=== PATIENT | male | born 1955 | race Two or more races ===

== ENCOUNTER 2025-07-10 07:34 | Inpatient (IN) | payer MEDICAID ==
[2025-07-10] VITALS (32 sets, daily range): BP systolic 73–128; BP diastolic 49–95; TEMP 96.8–97; O2SAT 92–100
[~2025-07-10] VITALS: Ht 170.2 cm; Wt 104.8 kg
[2025-07-10] MEDS: ETOMIDATE 2 MG/ML VIAL IV ONE (07:44)
[2025-07-10] MEDS: ROCURONIUM BROMIDE 100 MG/10 ML VIAL IV ONE (07:44)
[2025-07-10] MEDS: IV NS 0.9% 500 ML BAG IV ONE (07:45)
[2025-07-10] MEDS ORDERED: PROPOFOL 100 ML ONE (07:49)
[2025-07-10] MEDS ORDERED: IOHEXOL-350 100 ML VIAL IV ONE (07:53)
[2025-07-10] MEDS ORDERED: IV NS 0.9% 250 ML IV ONE (07:53)
[2025-07-10 08:23] LABS: PLATELET COUNT (AUTO) 156 K/uL (150-450); RED CELL DISTRIBUTION WIDTH 19.5 % (11.5-15.0); WHITE BLOOD COUNT (AUTO) 9.9 K/uL (4.3-11.0)
[2025-07-10 08:28] LABS: RED BLOOD CELL COUNT(AUTO) 1.68 MIL/uL (4.5-6.0)
[2025-07-10 08:33] LABS: CALCIUM, SERUM 8.0 mg/dL (8.5-10.1); CREATININE 1.4 mg/dL (0.6-1.3); SODIUM SERUM 137 mmol/L (136-145); UREA NITROGEN, BLOOD 37 mg/dL (7-18)
[2025-07-10] MEDS: PROPOFOL 100 ML IV ONE (08:35)
[2025-07-10 08:37] LABS: INR 1.46 (0.91-1.10)
[2025-07-10 08:38] LABS: ASPARTATE AMINOTRANSFERASE 75 U/L (15-37); LACTIC ACID 6.6 mmol/L (0.4-2.0); TOTAL PROTEIN, SERUM 6.0 g/dL (6.4-8.2)
[2025-07-10] MEDS: VANCOMYCIN 1 GM in IV D5W 250 ML IV ONE (08:38)
[2025-07-10 08:41] LABS: ALCOHOL, BLOOD < 3 mg/dL (0-10)
[2025-07-10 08:50] LABS: ABG BASE EXCESS -5.7 mmol/L (-2.0-3.0); ABG OXYGEN SATURATION 99.6 % (94.0-98.0); ABG PCO2 34.8 mmHg (35.0-48.0); ABG PH 7.360 (7.350-7.450); ABG PO2 335.8 mmHg (83.0-108.0); ABG TOTAL HEMOGLOBIN 6.3 G/dL (13.5-17.5); FRACTIONATED INSPIRED OXYGEN 100.0 %; PEEP,BG 5 cm H2O; SET RATE, BG 18.0; SITE, ABG LEFT RADIAL; VT, ABG 500 mL
[2025-07-10] MEDS ORDERED: DOSING PER PHARMACY-VANCOMYCIN IV XX PRN (09:00)
[2025-07-10] MEDS ORDERED: ALBUTEROL FS 2.5 MG/3 ML VIAL.NEB NEB PRN (09:00)
[2025-07-10] MEDS ORDERED: Z GUARD REMEDY 4 OZ OINT TP PRN (09:00)
[2025-07-10] MEDS ORDERED: ACETAMINOPHEN 650 MG/SUPP.RECT RC PRN (09:00)
[2025-07-10] MEDS: PANTOPRAZOLE 40 MG VIAL IV SCH (09:00)
[2025-07-10] MEDS: LACTULOSE 10 G/15 ML UDC (PYXIS) PO ONE (09:00)
[2025-07-10] MEDS ORDERED: DOSING PER PHARMACY-CEFEPIME IVPB XX PRN (09:00)
[2025-07-10] MEDS ORDERED: ONDANSETRON HCL/PF 4 MG/2 ML VIAL IVP PRN (09:00)
[2025-07-10] MEDS: PANTOPRAZOLE 40 MG VIAL IV ONE (09:30)
[2025-07-10 09:34] LABS: APPEARANCE,URINE CLEAR (CLEAR); BLOOD, URINE NEGATIVE Ery/uL (NEGATIVE); LEUKOCYTE ESTERASE ,URINE NEGATIVE (NEGATIVE); NITRITE, URINE NEGATIVE (NEGATIVE); UGLUCOSE NEGATIVE (NEGATIVE)
[2025-07-10] MEDS ORDERED: glucosamine PO (09:37)
[2025-07-10] MEDS: CEFEPIME 1 GM in IV D5W 50 ML IV ONE (09:40)
[2025-07-10 09:41] LABS: AMPHETAMINE, URINE NEGATIVE (NEGATIVE); BARBITURATE, URINE NEGATIVE (NEGATIVE); BENZODIAZEPINE, URINE NEGATIVE (NEGATIVE); CANNABINOID, URINE NEGATIVE (NEGATIVE); COCCAINE, URINE NEGATIVE (NEGATIVE); OPIATE, URINE NEGATIVE (NEGATIVE)
[2025-07-10] MEDS: IV D5 LR 1,000 ML IV PRN (11:28)
[2025-07-10] MEDS: PROPOFOL 100 ML IV PRN (11:39)
[2025-07-10 12:04] LABS: BASOPHILS % (MANUAL) 0 % (0.0-2.0); EOSINOPHILS % (MANUAL) 0 % (0-4); LYMPHOCYTES % (MANUAL) 5 % (16-48); MONOCYTES % (MANUAL) 11 % (0-11.0); NEUTROPHILS % (MANUAL) 84 (42-76); PLATELET ESTIMATE ADEQUATE
[2025-07-10] MEDS: VANCOMYCIN 500 MG in IV D5W 100ml IV ONE (12:56)
[2025-07-10] MEDS ORDERED: ETOMIDATE 2 MG/ML VIAL IV ONE (15:22)
[2025-07-10] MEDS ORDERED: ROCURONIUM BROMIDE 50 MG/5 ML IV ONE (15:22)
[2025-07-10] MEDS ORDERED: CEFEPIME 2 GM in IV D5W 100 ML IV SCH (21:00)
[2025-07-10] MEDS: CEFTRIAXONE 1 G in IV D5W 50 ML IV SCH (21:04)
[2025-07-10] MEDS: NOREPINEPHRINE 8 MG in IV NS 0.9% 242 ML IV PRN (22:05)
[2025-07-11] VITALS (105 sets, daily range): BP systolic 88–137; BP diastolic 18–83; TEMP 97–99.9; O2SAT 95–100
[2025-07-11] MEDS: VANCOMYCIN 750 MG in IV D5W 250 ML IV SCH (00:09)
[2025-07-11 05:12] LABS: PLATELET COUNT (AUTO) 109 K/uL (150-450); RED CELL DISTRIBUTION WIDTH 23.3 % (11.5-15.0); WHITE BLOOD COUNT (AUTO) 5.7 K/uL (4.3-11.0)
[2025-07-11 05:23] LABS: RED BLOOD CELL COUNT(AUTO) 1.73 MIL/uL (4.5-6.0)
[2025-07-11 05:30] LABS: CALCIUM, SERUM 7.6 mg/dL (8.5-10.1); CREATININE 1.7 mg/dL (0.6-1.3); PHOSPHORUS 5.2 mg/dL (2.5-4.9); SODIUM SERUM 136.0 mmol/L (136-145); UREA NITROGEN, BLOOD 49.0 mg/dL (7-18)
[2025-07-11 05:42] LABS: LDL 19.0 mg/dL (0-99)
[2025-07-11 06:06] LABS: BAND % (MANUAL) 1 % (0.0-5.0); LYMPHOCYTES % (MANUAL) 5 % (16-48); MONOCYTES % (MANUAL) 7 % (0-11.0); NEUTROPHILS % (MANUAL) 87 (42-76); PLATELET ESTIMATE DECREASED
[2025-07-11 06:11] LABS: SERUM AMMONIA 131.0 umol/L (11-32)
[2025-07-11 07:42] LABS: ABG BASE EXCESS -4.2 mmol/L (-2.0-3.0); ABG OXYGEN SATURATION 99.2 % (94.0-98.0); ABG PCO2 26.2 mmHg (35.0-48.0); ABG PH 7.475 (7.350-7.450); ABG PO2 166.8 mmHg (83.0-108.0); ABG TOTAL HEMOGLOBIN 7.0 G/dL (13.5-17.5); FRACTIONATED INSPIRED OXYGEN 60.0 %; PEEP,BG 5 cm H2O; SET RATE, BG 18.0; SITE, ABG RIGHT RADIAL; VT, ABG 500 mL
[2025-07-11] MEDS ORDERED: PIPERACILLIN /TAZOBACTAM 3.375 G in IV D5W 50 ML IV SCH (10:30)
[2025-07-11] MEDS: ZOSYN IVPB 3.375 G in IV D5W 50ml IV ONE (11:01)
[2025-07-11] MEDS: LACTULOSE UDC 200 G in SODIUM CHLORIDE IRRIG SOLUTION 400 ML IR SCH (13:00)
[2025-07-11] MEDS ORDERED: ANESTHESIA TRAY IN PYXIS 1 EA TRAY MC ONE (17:20)
[2025-07-11] MEDS ORDERED: LACTULOSE 10 G/15 ML UDC (PYXIS) PO PRN (18:30)
[2025-07-11] MEDS: PIPERACILLIN /TAZOBACTAM 3.375 G in IV D5W 100 ML IV SCH (19:56)
[2025-07-12] VITALS (72 sets, daily range): BP systolic 80–137; BP diastolic 48–86; TEMP 97.9–100.4; O2SAT 95–100
[2025-07-12 03:59] LABS: PLATELET COUNT (AUTO) 107 K/uL (150-450); RED CELL DISTRIBUTION WIDTH 23.7 % (11.5-15.0); WHITE BLOOD COUNT (AUTO) 5.8 K/uL (4.3-11.0)
[2025-07-12 04:11] LABS: SERUM AMMONIA 79.0 umol/L (11-32)
[2025-07-12 04:12] LABS: ASPARTATE AMINOTRANSFERASE 64.0 U/L (15-37); CALCIUM, SERUM 7.1 mg/dL (8.5-10.1); CREATININE 1.2 mg/dL (0.6-1.3); PHOSPHORUS 3.7 mg/dL (2.5-4.9); SODIUM SERUM 136.0 mmol/L (136-145); TOTAL PROTEIN, SERUM 4.6 g/dL (6.4-8.2); UREA NITROGEN, BLOOD 37.0 mg/dL (7-18)
[2025-07-12 04:21] LABS: RED BLOOD CELL COUNT(AUTO) 1.76 MIL/uL (4.5-6.0)
[2025-07-12 05:11] LABS: BAND % (MANUAL) 1 % (0.0-5.0); LYMPHOCYTES % (MANUAL) 7 % (16-48); MONOCYTES % (MANUAL) 7 % (0-11.0); NEUTROPHILS % (MANUAL) 85 (42-76); PLATELET ESTIMATE DECREASED
[2025-07-12 05:45] LABS: CREATINE KINASE, TOTAL 50.0 U/L (39-308)
[2025-07-12] MEDS: RIFAXIMIN 550 MG TABLET PO SCH (09:05)
[2025-07-12] MEDS: LACTULOSE 10 G/15 ML UDC (PYXIS) PO SCH (12:54)
[2025-07-12 19:14] LABS: CREATININE, URINE 47.8 MG/DL (30.0-125.0); URINE SODIUM, RANDOM < 5 mmol/l (40-220); URINE TOTAL PROTEIN 25.5 mg/dL (0-11.9)
[2025-07-13] VITALS (27 sets, daily range): BP systolic 101–151; BP diastolic 57–106; TEMP 98.2–99.1; O2SAT 94–99
[2025-07-13 04:51] LABS: PLATELET COUNT (AUTO) 81 K/uL (150-450); RED BLOOD CELL COUNT(AUTO) 2.31 MIL/uL (4.5-6.0); RED CELL DISTRIBUTION WIDTH 22.6 % (11.5-15.0); WHITE BLOOD COUNT (AUTO) 7.6 K/uL (4.3-11.0)
[2025-07-13 04:53] LABS: SERUM AMMONIA 52.0 umol/L (11-32)
[2025-07-13 04:56] LABS: CALCIUM, SERUM 7.6 mg/dL (8.5-10.1); CREATININE 1.0 mg/dL (0.6-1.3); SODIUM SERUM 144.0 mmol/L (136-145); UREA NITROGEN, BLOOD 27.0 mg/dL (7-18)
[2025-07-13 05:31] LABS: LYMPHOCYTES % (MANUAL) 5 % (16-48); MONOCYTES % (MANUAL) 9 % (0-11.0); NEUTROPHILS % (MANUAL) 86 (42-76); PLATELET ESTIMATE DECREASED
[2025-07-13 08:07] LABS: PTH, INTACT 39 pg/mL (15-65)
[2025-07-13] MEDS: MODAFINIL 100 MG TABLET PO SCH (11:54)
[2025-07-13] MEDS ORDERED: LATA2.5D15 EACHEYE (16:08)
[2025-07-13] MEDS ORDERED: BRIN8DRO2 EACHEYE (16:08)
[2025-07-14] VITALS (24 sets, daily range): BP systolic 110–156; BP diastolic 65–94; TEMP 98–98.9; O2SAT 93–100
[2025-07-14 05:21] LABS: PLATELET COUNT (AUTO) 75 K/uL (150-450); RED BLOOD CELL COUNT(AUTO) 2.38 MIL/uL (4.5-6.0); RED CELL DISTRIBUTION WIDTH 21.5 % (11.5-15.0); WHITE BLOOD COUNT (AUTO) 7.0 K/uL (4.3-11.0)
[2025-07-14 05:31] LABS: CALCIUM, SERUM 7.6 mg/dL (8.5-10.1); CREATININE 0.9 mg/dL (0.6-1.3); SODIUM SERUM 145.0 mmol/L (136-145); UREA NITROGEN, BLOOD 21.0 mg/dL (7-18)
[2025-07-14 05:50] LABS: LYMPHOCYTES % (MANUAL) 10 % (16-48)
[2025-07-14 05:51] LABS: EOSINOPHILS % (MANUAL) 2 % (0-4); MONOCYTES % (MANUAL) 5 % (0-11.0); NEUTROPHILS % (MANUAL) 83 (42-76); PLATELET ESTIMATE DECREASED
[2025-07-14 06:11] LABS: *SPE A/G RATIO 0.8 (0.7-1.7); *SPE ALBUMIN 1.9 g/dL (2.9-4.4); *SPE ALPHA-1-GLOBULIN 0.3 g/dL (0.0-0.4); *SPE ALPHA-2-GLOBULIN 0.4 g/dL (0.4-1.0); *SPE BETA GLOBULIN 0.5 g/dL (0.7-1.3); *SPE GLOBULIN, TOTAL 2.3 g/dL (2.2-3.9); *SPE M-SPIKE 0.2 g/dL (Not Observed); *SPE PROTEIN TOTAL 4.2 g/dL (6.0-8.5); *SPEGAMMA GLOBULIN 1.1 g/dL (0.4-1.8)
[2025-07-14 10:31] LABS: ABG BASE EXCESS -1.5 mmol/L (-2.0-3.0); ABG OXYGEN SATURATION 97.5 % (94.0-98.0); ABG PCO2 34.0 mmHg (35.0-48.0); ABG PH 7.436 (7.350-7.450); ABG PO2 102.2 mmHg (83.0-108.0); ABG TOTAL HEMOGLOBIN 9.1 G/dL (13.5-17.5); FRACTIONATED INSPIRED OXYGEN 40.0 %; PEEP,BG 5 cm H2O; SET RATE, BG 4.0; SITE, ABG RIGHT RADIAL
[2025-07-15] VITALS (25 sets, daily range): BP systolic 105–137; BP diastolic 55–100; TEMP 98.3–99.5; O2SAT 95–100
[2025-07-15 05:12] LABS: PLATELET COUNT (AUTO) 72 K/uL (150-450); RED BLOOD CELL COUNT(AUTO) 2.39 MIL/uL (4.5-6.0); RED CELL DISTRIBUTION WIDTH 21.0 % (11.5-15.0); WHITE BLOOD COUNT (AUTO) 5.6 K/uL (4.3-11.0)
[2025-07-15 05:31] LABS: ASPARTATE AMINOTRANSFERASE 118.0 U/L (15-37); CALCIUM, SERUM 7.6 mg/dL (8.5-10.1); CREATININE 0.8 mg/dL (0.6-1.3); PHOSPHORUS 2.2 mg/dL (2.5-4.9); SODIUM SERUM 147.0 mmol/L (136-145); TOTAL PROTEIN, SERUM 6.0 g/dL (6.4-8.2); UREA NITROGEN, BLOOD 16.0 mg/dL (7-18)
[2025-07-15 06:05] LABS: EOSINOPHILS % (MANUAL) 3 % (0-4); LYMPHOCYTES % (MANUAL) 10 % (16-48); MONOCYTES % (MANUAL) 5 % (0-11.0); NEUTROPHILS % (MANUAL) 82 (42-76); PLATELET ESTIMATE DECREASED
[2025-07-15] MEDS: IV D5W 1,000 ML IV PRN (13:21)
[2025-07-15 14:18] LABS: ABG BASE EXCESS 1.0 mmol/L (-2.0-3.0); ABG OXYGEN SATURATION 97.3 % (94.0-98.0); ABG PCO2 38.7 mmHg (35.0-48.0); ABG PH 7.433 (7.350-7.450); ABG PO2 96.2 mmHg (83.0-108.0); ABG TOTAL HEMOGLOBIN 8.9 G/dL (13.5-17.5); FRACTIONATED INSPIRED OXYGEN 40.0 %; PEEP,BG 5 cm H2O; SITE, ABG RIGHT RADIAL
[2025-07-15 16:04] LABS: APPEARANCE,SPUN,BODY FLUID CLEAR (CLEAR); PROTEIN, BODY FLUID 0.7 G/DL; TOTAL VOLUME,BODY FLUID 4950 mL
[2025-07-15] MEDS: K PHOS NEUTRAL 250 MG TABLET PO ONE (16:21)
[2025-07-15] MEDS: BRINZOLAMIDE 1 % OPHTH SOLN 10 ML BOTTLE EACHEYE SCH (16:52)
[2025-07-15 18:41] LABS: MACROPHAGES, BODY FLUID 1; MONOCYTES,BODY FLUID 0 %
[2025-07-15] MEDS: METRONIDAZOLE 500MG/ NS 100ML 100 ML IV ONE (21:16)
[2025-07-15] MEDS: LEVOFLOXACIN 500 MG /D5W 100ML 100 ML IV ONE (21:17)
[2025-07-15] MEDS: METRONIDAZOLE 500MG/ NS 100ML 500 MG in PREMIX 1 EA IV SCH (21:29)
[2025-07-15] MEDS: LEVOFLOXACIN 500 MG /D5W 100ML 500 MG in PREMIX 1 EA IV SCH (22:32)
[2025-07-15] MEDS: LATANOPROST EYE DROP 0.005% 2.5 ML BOTTLE EACHEYE SCH (22:35)
[2025-07-16] VITALS (25 sets, daily range): BP systolic 111–137; BP diastolic 54–89; TEMP 97.8–98.8; O2SAT 94–100
[2025-07-16 04:30] LABS: PLATELET COUNT (AUTO) 61 K/uL (150-450); RED BLOOD CELL COUNT(AUTO) 2.36 MIL/uL (4.5-6.0); RED CELL DISTRIBUTION WIDTH 20.5 % (11.5-15.0); WHITE BLOOD COUNT (AUTO) 4.2 K/uL (4.3-11.0)
[2025-07-16 04:38] LABS: CALCIUM, SERUM 7.9 mg/dL (8.5-10.1); CREATININE 0.8 mg/dL (0.6-1.3); SODIUM SERUM 148.0 mmol/L (136-145); UREA NITROGEN, BLOOD 14.0 mg/dL (7-18)
[2025-07-16 05:09] LABS: NEUTROPHILS % (MANUAL) 80 (42-76)
[2025-07-16 05:10] LABS: EOSINOPHILS % (MANUAL) 2 % (0-4); LYMPHOCYTES % (MANUAL) 12 % (16-48); MONOCYTES % (MANUAL) 6 % (0-11.0)
[2025-07-16 05:11] LABS: PLATELET ESTIMATE DECREASED
[2025-07-16] MEDS ORDERED: METRONIDAZOLE 500MG/ NS 100ML 100 ML IV ONE (05:28)
[2025-07-16] MEDS: NEUTRA PHOS 1 POWD.PACKET PO ONE (15:54)
[2025-07-17] VITALS (13 sets, daily range): BP systolic 106–133; BP diastolic 60–99; TEMP 97.5–98.5; O2SAT 94–97
[2025-07-17 04:26] LABS: CALCIUM, SERUM 7.6 mg/dL (8.5-10.1); CREATININE 0.9 mg/dL (0.6-1.3); PHOSPHORUS 2.0 mg/dL (2.5-4.9); SODIUM SERUM 146.0 mmol/L (136-145); UREA NITROGEN, BLOOD 15.0 mg/dL (7-18)
[2025-07-17] MEDS: IPRATROPIUM NEB FS 0.5 MG/2.5 ML AMPUL.NEB NEB PRN (04:47)
[2025-07-17] MEDS: POTASSIUM PHOSPHATE MM 5 MMOL in IV NS 0.9% 100 ML IV SCH (07:57)
[2025-07-17] MEDS: NEUTRA PHOS 1 POWD.PACKET PO ONE (15:37)
[2025-07-18] VITALS: BP 131/72; TEMP 97.5; O2SAT 94
[2025-07-18 04:00] VITALS: BP 136/76; TEMP 97.3; O2SAT 97
[2025-07-18 06:18] LABS: CALCIUM, SERUM 8.0 mg/dL (8.5-10.1); CREATININE 1.1 mg/dL (0.6-1.3); SODIUM SERUM 143.0 mmol/L (136-145); UREA NITROGEN, BLOOD 18.0 mg/dL (7-18)
[2025-07-18 08:00] VITALS: BP 125/69; TEMP 98.3; O2SAT 94
[2025-07-18 12:00] VITALS: BP 128/73; TEMP 97.9; O2SAT 95
[2025-07-18] MEDS: LACTULOSE 10 G/15 ML UDC (PYXIS) PO SCH (13:00)
[2025-07-18] MEDS: METRONIDAZOLE 500 MG TABLET PO SCH (13:00)
[2025-07-18 16:00] VITALS: BP 131/73; TEMP 97.6; O2SAT 95
[2025-07-18 20:00] VITALS: BP 117/66; TEMP 97.7; O2SAT 98
[2025-07-18] MEDS ORDERED: LEVOFLOXACIN (250MG) 250 MG TABLET PO SCH (21:00)
[2025-07-19] VITALS: BP 111/66; TEMP 97.3; O2SAT 97
[2025-07-19 04:00] VITALS: BP 123/69; TEMP 97.3; O2SAT 98
[2025-07-19 06:19] LABS: PLATELET COUNT (AUTO) 110 K/uL (150-450); RED BLOOD CELL COUNT(AUTO) 2.57 MIL/uL (4.5-6.0); RED CELL DISTRIBUTION WIDTH 20.4 % (11.5-15.0); WHITE BLOOD COUNT (AUTO) 9.7 K/uL (4.3-11.0)
[2025-07-19 06:38] LABS: ASPARTATE AMINOTRANSFERASE 44.0 U/L (15-37); CALCIUM, SERUM 7.7 mg/dL (8.5-10.1); CREATININE 0.9 mg/dL (0.6-1.3); PHOSPHORUS 3.0 mg/dL (2.5-4.9); SODIUM SERUM 143.0 mmol/L (136-145); TOTAL PROTEIN, SERUM 5.9 g/dL (6.4-8.2); UREA NITROGEN, BLOOD 18.0 mg/dL (7-18)
[2025-07-19 08:00] VITALS: BP 118/72; TEMP 97.7; O2SAT 98
[2025-07-19 12:00] VITALS: BP 113/71; TEMP 97.3; O2SAT 98
[2025-07-19 16:00] VITALS: BP 106/68; TEMP 97.7; O2SAT 98
[2025-07-19 20:00] VITALS: BP 122/73; TEMP 97.8; O2SAT 98
[2025-07-20] VITALS: BP 110/66; TEMP 97.5; O2SAT 99
[2025-07-20 04:00] VITALS: BP 110/69; TEMP 97.7; O2SAT 98
[2025-07-20 06:19] LABS: PLATELET COUNT (AUTO) 126 K/uL (150-450); RED BLOOD CELL COUNT(AUTO) 2.52 MIL/uL (4.5-6.0); RED CELL DISTRIBUTION WIDTH 19.7 % (11.5-15.0); WHITE BLOOD COUNT (AUTO) 9.1 K/uL (4.3-11.0)
[2025-07-20 06:45] LABS: ASPARTATE AMINOTRANSFERASE 42.0 U/L (15-37); CALCIUM, SERUM 7.7 mg/dL (8.5-10.1); CREATININE 0.9 mg/dL (0.6-1.3); PHOSPHORUS 3.3 mg/dL (2.5-4.9); SODIUM SERUM 139.0 mmol/L (136-145); TOTAL PROTEIN, SERUM 5.7 g/dL (6.4-8.2); UREA NITROGEN, BLOOD 18.0 mg/dL (7-18)
[2025-07-20 08:00] VITALS: BP 132/72; TEMP 97.7; O2SAT 97
[2025-07-20 12:00] VITALS: BP 130/72; TEMP 97.7; O2SAT 97
== END 2025-07-20 14:25 | DRG 423 ==
LOC: ER 07:48 → ICU 10:28 → TELE-TD 07-17 12:58 → TELE1 07-18 10:13
PROVIDERS: ADMIT Nurse Practitioner Acute Care
PROC: 5A1955Z Respiratory Ventilation, Greater than 96 Consecutive Hours (ICD-10-PCS; 2025-07-10)
PROC: 0BH17EZ Insertion of Endotracheal Airway into Trachea, Via Natural or Artificial Opening (ICD-10-PCS; 2025-07-10)
PROC: 30233N1 Transfusion of Nonautologous Red Blood Cells into Peripheral Vein, Percutaneous Approach (ICD-10-PCS; 2025-07-10)
PROC: 0DJ08ZZ Inspection of Upper Intestinal Tract, Via Natural or Artificial Opening Endoscopic (ICD-10-PCS; principal; 2025-07-11 17:30)
PROC: 0W9G3ZX Drainage of Peritoneal Cavity, Percutaneous Approach, Diagnostic (ICD-10-PCS; 2025-07-16)
DX: E72.20 Disorder of urea cycle metabolism, unspecified (principal); J96.01 Acute respiratory failure with hypoxia; Z99.11 Dependence on respirator [ventilator] status; G92.9 Unspecified toxic encephalopathy; K76.82 Hepatic encephalopathy; K92.2 Gastrointestinal hemorrhage, unspecified; K56.7 Ileus, unspecified; D69.6 Thrombocytopenia, unspecified; N17.9 Acute kidney failure, unspecified; K76.6 Portal hypertension; I12.9 Hypertensive chronic kidney disease with stage 1 through stage 4 chronic kidney disease, or unspecified chronic kidney disease; N18.9 Chronic kidney disease, unspecified; F10.11 Alcohol abuse, in remission; D53.9 Nutritional anemia, unspecified; K74.60 Unspecified cirrhosis of liver; Z66 Do not resuscitate; K31.89 Other diseases of stomach and duodenum; E87.20 Acidosis, unspecified; Z91.148 Patient's other noncompliance with medication regimen for other reason; R73.9 Hyperglycemia, unspecified; E88.09 Other disorders of plasma-protein metabolism, not elsewhere classified; L98.9 Disorder of the skin and subcutaneous tissue, unspecified; M89.8X9 Other specified disorders of bone, unspecified site; E87.70 Fluid overload, unspecified; Z86.19 Personal history of other infectious and parasitic diseases; E87.0 Hyperosmolality and hypernatremia
CPT/HCPCS: 31720; 36415; 36600; 49083; 70450-TC; 70496-TC; 70498-TC; 71045-TC; 74018; 76705-TC; 76770-TC; 80048-TC; 80053-TC; 80061-TC; 80076-TC; 80202-TC; 82040-TC; 82140-TC; 82550-TC; 82570-TC; 82607-TC; 82803-TC; 82945-TC; 83605-TC; 83735-TC; 83921; 83970; 84100-TC; 84155; 84165; 84300-TC; 84425; 84443-TC; 84478-TC; 84484-TC; 85025-TC; 85027-TC; 85730-TC; 86850-TC; 87040-TC; 87070-TC; 87081-TC; 87086-TC; 87205-TC; 89051-TC; 93307-TC; 93970-TC; 94002-TC; 94003-TC; 94799-TC; 95819-TC; 97110-TC; 97112-TC; 97116-TC; 97530-TC; 97535-TC; A4216; A4217; A4223; G0378; G0480; J0692; J0696; J1956; J2470; J2543; J2704; J3373; J3374; J3490; J7030; J7040; J7050; J7060; J7070; P9016; Q9967